=== PATIENT | female | born 1965 | race Caucasian/White ===

== ENCOUNTER 2017-07-18 15:34 | Emergency (ER) | payer MEDICARE ==
[2014-10-27 09:53] VITALS: BMI 36.4
[~2017-07-18 15:34] MED LIST: COZAAR25 MG PO; ESGIC TABLET1 TAB PO; FLORANEX / LACT1 TAB PO; GEODON80 MG PO; IPRAT-ALBUT 0.5-3 ML UPD; KLONOPIN0.5 MG PO; LANTUS SOL100 UNIT/1 SQ; LASIX40 MG PO; LEVAQUIN500 MG PO; LEXAPRO10 MG PO; MIRALAX17 GM PO; NEURONTIN600 MG PO; NEXIUM40 MG PO; NICODERM C1 PATCH .3 TRANSDERM; PAXIL20 MG PO; PERCOCET 10/3251 TA1 PO; SINEQUAN50 MG PO; SINGULAIR10 MG PO; TYLENOL 8 HOUR650 MG PO; VANCOMYCIN 1 GM/1 G1 IV; ZOCOR40 MG PO
== END 2017-07-18 16:28 | disposition home or self-care (01) ==
LOC: D.ER 15:34
DX: M79.662 Pain in left lower leg (principal); F17.200 Nicotine dependence, unspecified, uncomplicated

== ENCOUNTER → 2018-02-27 12:22 | Outpatient (CLI) | payer MEDICARE ==
[2014-10-27 09:53] VITALS: BMI 36.4
[2018-02-27 19:58] LABS: BASOPHILS 0.2 % (0-2); EOSINOPHILS 1.5 % (0-7); HEMATOCRIT 43.7 % (36.0-48.0); HEMOGLOBIN 15.5 g/dL (12-16); IMMATURE GRANULOCYTES 0.1 % (0-5); LYMPHOCYTES 30.1 % (15-50); MCH 33.8 pg (26.0-34.0); MCHC 35.5 g/dL (31.0-37.0); MCV 95.4 fL (80.0-100.0); MEAN PLATELET VOLUME 10.4 fL (7.4-10.4); NEUTROPHILS 61.1 % (40-80); PLATELET COUNT 327 10x3/uL (130-400); RBC 4.58 10x6/uL (4.00-5.40); RDW 14.6 % (11.5-14.5); WBC 8.9 10x3/uL (4.8-10.8)
[2018-02-27 20:12] LABS: C-REACTIVE PROTEIN 3.8 mg/dL (0.0-0.9); CREATININE - SERUM 0.8 mg/dL (0.6-1.3)
[2018-02-27 21:26] LABS: ERYTHROCYTE SEDIMENTATION RATE 30 mm/hr (0-30)
== END | disposition home or self-care (01) ==
LOC: D.LABREF 12:22
PROVIDERS: Student in an Organized Health Care Education/Training Program
DX: M86.9 Osteomyelitis, unspecified (principal)

== ENCOUNTER → 2019-08-08 20:27 | Outpatient (CLI) | payer MEDICARE ==
[2014-10-27 09:53] VITALS: BMI 36.4
== END | disposition home or self-care (01) ==
LOC: D.LABREF 20:27
PROVIDERS: ATTEND Internal Medicine Cardiovascular Disease
DX: T84.52XA Infection and inflammatory reaction due to internal left hip prosthesis, initial encounter (principal); E11.9 Type 2 diabetes mellitus without complications

== ENCOUNTER → 2019-12-23 12:42 | Outpatient (CLI) | payer MEDICARE ==
[2014-10-27 09:53] VITALS: BMI 36.4
[2019-12-23 13:00] LABS: BASOPHILS 0.7 % (0-2); EOSINOPHILS 2.9 % (0-7); HEMATOCRIT 34.3 % (36.0-48.0); HEMOGLOBIN 10.6 g/dL (12-16); IMMATURE GRANULOCYTES 0.1 % (0-5); LYMPHOCYTES 26.4 % (15-50); MCH 29.4 pg (26.0-34.0); MCHC 30.9 g/dL (31.0-37.0); MEAN PLATELET VOLUME 9.4 fL (7.4-10.4); MONOCYTES 8.1 % (2-11); NEUTROPHILS 61.8 % (40-80); PLATELET COUNT 339 10x3/uL (130-400); RBC 3.61 10x6/uL (4.00-5.40); RDW 14.4 % (11.5-14.5); WBC 7.5 10x3/uL (4.8-10.8)
[2019-12-23 13:04] LABS: CREATININE - SERUM 0.8 mg/dL (0.6-1.3)
== END | disposition home or self-care (01) ==
LOC: D.LABREF 12:42
PROVIDERS: ATTEND Internal Medicine Cardiovascular Disease
DX: M86.9 Osteomyelitis, unspecified (principal); E11.40 Type 2 diabetes mellitus with diabetic neuropathy, unspecified

== ENCOUNTER → 2019-12-30 12:24 | Outpatient (CLI) | payer MEDICARE ==
[2014-10-27 09:53] VITALS: BMI 36.4
[2019-12-30 15:46] LABS: BASOPHILS 0.6 % (0-2); EOSINOPHILS 2.7 % (0-7); HEMATOCRIT 33.8 % (36.0-48.0); HEMOGLOBIN 10.6 g/dL (12-16); IMMATURE GRANULOCYTES 0.2 % (0-5); LYMPHOCYTES 23.7 % (15-50); MCHC 31.4 g/dL (31.0-37.0); MCV 92.3 fL (80.0-100.0); MEAN PLATELET VOLUME 9.6 fL (7.4-10.4); MONOCYTES 8.4 % (2-11); NEUTROPHILS 64.4 % (40-80); PLATELET COUNT 280 10x3/uL (130-400); RBC 3.66 10x6/uL (4.00-5.40); RDW 14.3 % (11.5-14.5); WBC 6.3 10x3/uL (4.8-10.8)
[2019-12-30 16:04] LABS: CREATININE - SERUM 0.7 mg/dL (0.6-1.3)
== END | disposition home or self-care (01) ==
LOC: D.LABREF 12:24
PROVIDERS: ATTEND Internal Medicine Cardiovascular Disease
DX: M86.9 Osteomyelitis, unspecified (principal); T84.52XA Infection and inflammatory reaction due to internal left hip prosthesis, initial encounter

== ENCOUNTER → 2020-01-06 16:30 | Outpatient (CLI) | payer MEDICARE ==
[2014-10-27 09:53] VITALS: BMI 36.4
[2020-01-06 16:35] LABS: BASOPHILS 0.6 % (0-2); EOSINOPHILS 2.8 % (0-7); HEMATOCRIT 34.4 % (36.0-48.0); HEMOGLOBIN 10.8 g/dL (12-16); IMMATURE GRANULOCYTES 0.3 % (0-5); LYMPHOCYTES 27.6 % (15-50); MCH 28.5 pg (26.0-34.0); MCHC 31.4 g/dL (31.0-37.0); MCV 90.8 fL (80.0-100.0); MEAN PLATELET VOLUME 10.3 fL (7.4-10.4); MONOCYTES 8.9 % (2-11); NEUTROPHILS 59.8 % (40-80); PLATELET COUNT 262 10x3/uL (130-400); RBC 3.79 10x6/uL (4.00-5.40)
== END | disposition home or self-care (01) ==
LOC: D.LABREF 16:30
PROVIDERS: ATTEND Internal Medicine Cardiovascular Disease
DX: T84.52XA Infection and inflammatory reaction due to internal left hip prosthesis, initial encounter (principal); M86.9 Osteomyelitis, unspecified; Z79.899 Other long term (current) drug therapy

== ENCOUNTER → 2020-01-13 13:27 | Outpatient (CLI) | payer MEDICARE ==
[2014-10-27 09:53] VITALS: BMI 36.4
[2020-01-13 14:29] LABS: BASOPHILS 0.6 % (0-2); EOSINOPHILS 3.1 % (0-7); HEMATOCRIT 38.5 % (36.0-48.0); HEMOGLOBIN 12.4 g/dL (12-16); IMMATURE GRANULOCYTES 0.1 % (0-5); LYMPHOCYTES 34.5 % (15-50); MCH 29.5 pg (26.0-34.0); MCHC 32.2 g/dL (31.0-37.0); MCV 91.7 fL (80.0-100.0); MONOCYTES 8.7 % (2-11); PLATELET COUNT 290 10x3/uL (130-400); RDW 15.5 % (11.5-14.5); WBC 6.9 10x3/uL (4.8-10.8)
[2020-01-13 14:44] LABS: CREATININE - SERUM 0.9 mg/dL (0.6-1.3)
== END | disposition home or self-care (01) ==
LOC: D.LABREF 13:27
DX: T84.52XA Infection and inflammatory reaction due to internal left hip prosthesis, initial encounter (principal); M86.9 Osteomyelitis, unspecified